=== PATIENT | female | born 1960 | race Caucasian/White ===

== ENCOUNTER → 2017-10-17 14:56 | Outpatient (CLI) | payer BC, SELFPAY ==
--- NOTE | 2017-10-17 15:00 | HPBI_ITS ---
MAMMOGRAPHY - BILATERAL SCREENING REASON FOR EXAM: Female, 57 years old. Routine annual screening examination. PERTINENT HISTORY: Non-contributory. TECHNIQUE: Digital bilateral breast philip (3D mammographic acquisition) in the CC and MLO projections. 2-D mediolateral oblique (MLO) and craniocaudad (CC) views of both breasts were obtained. CAD: Full Field Digital Mammography with Computer Added Detection was performed. COMPARISON: Comparison is made with prior study dated July 28, 2016 and July 14, 2015. FINDINGS: Breast Composition: The breasts are heterogeneously dense, which may obscure small masses. There are no dominant masses or suspicious calcifications. No other significant abnormalities are identified. There has been no significant change since the prior study. HPBI/SCREENING MAMM (CAD), BILAT IMPRESSION: Stable bilateral screening mammogram. Yearly follow-up mammogram recommended. (A) ASSESSMENT CATEGORY: BIRADS Category 1: Negative. A letter regarding these results will be sent to the patient by the facility within 30 days. Approximately 10% of breast cancers are not detected by mammography. A normal mammogram should not delay biopsy of a clinically suspicious abnormality. [id number] Electronically Signed: Jaylen Deleon MD at 8:33 EST Tel [phone], Service support ,
== END ==
PROVIDERS: Family Provider Family Medicine; PCP Family Medicine; Visit Provider Family Medicine
DX: Z12.31 Encounter for screening mammogram for malignant neoplasm of breast (principal)
CPT/HCPCS: 77063; 77067

== ENCOUNTER → 2017-11-29 15:23 | Outpatient (CLI) | payer BC, SELFPAY ==
--- NOTE | 2017-11-29 15:25 | HPBD_ITS ---
STUDY: DUAL ENERGY X-RAY ABSORPTIOMETRY / DXA REASON FOR EXAM: Female, 57 years old. Post menopausal female. Smoker. On [place] TECHNIQUE: Bone Mineral Density (BMD) measurements of lumbar spine were obtained. COMPARISON: None. FINDINGS: Lumbar Spine (L1-L4): g/cm2 (0.898) / T-score (-2.4) / Z-score (-1.3) Findings are suggestive of osteopenia with a moderate fracture risk. HPBD/Dexa Bone Density Study (HP) IMPRESSION: The patient is considered osteopenic as outlined below according to World Carlos Organization (WHO) criteria with a moderate fracture risk. Reference Information: The T-score is the number of standard deviations above or below the standard which is normal for young adults at their peak bone mineral density. The World Health Organization (WHO) interprets the T-scores as follows: Above -1 Normal bone density Between -1 and -2.5 Osteopenia Equal to / or below -2.5 Osteoporosis As a practical clinical guideline, osteopenia may be graded as follows: Mild -1 through -1.5 Moderate -1.6 through -2.0 Severe -2.1 through -2.4 The Z-score is the number of standard deviations above or below age-matched controls. A Z-score of less than -1.5 would be considered abnormal. References: 1. NIH Osteoporosis and Related Bone Diseases http://www.osteo.org 2. International Society for Clinical Densitometry http://www.iscd.org 3. National Osteoporosis Foundation http://www.nof.org Electronically Signed: Fernando Rae DO at 8:44 EDT Tel [phone], Service support ,
== END ==
PROVIDERS: Family Provider Family Medicine; PCP Family Medicine; Visit Provider Family Medicine
DX: M81.0 Age-related osteoporosis without current pathological fracture (principal)
CPT/HCPCS: 77080

== ENCOUNTER 2017-12-05 19:36 | Emergency (ER) | payer BC, SELFPAY ==
[2017-12-05 19:38] VITALS: BP 141/78; PULSE 94; RESP 16; TEMP 37.2; O2SAT 95; BMI 27.4
--- NOTE | 2017-12-05 20:54 | EKG12_ITS ---
Test Reason : Blood Pressure : / mmHG Vent. Rate : 080 BPM Atrial Rate : 080 BPM P-R Int : 162 ms QRS Dur : 080 ms QT Int : 386 ms P-R-T Axes : 051 049 036 degrees QTc Int : 445 ms Normal sinus rhythm Normal ECG Confirmed by FARZANEH CORRALES MD ([id number]), city editor NETO KIRKPATRICK ([id number]) on 12/09/2017 12:58:57 PM Referred By: Confirmed By:FARZANEH CORRALES MD
--- NOTE | 2017-12-05 21:00 | US_ITS ---
STUDY: VENOUS DOPPLER ULTRASOUND - RIGHT LOWER EXTREMITY REASON FOR EXAM: Female, 57 years old. Pain TECHNIQUE: Ultrasound evaluation of the deep vein system to include love-scale imaging and compression was performed. Love-scale imaging and Doppler sonographic evaluation, including duplex spectral analysis and qualitative color flow sonography, was performed. COMPARISON: None. FINDINGS: Common Femoral Vein: Normal compression, spontaneity and augmentation. Normal color Doppler. Common Femoral Vein/Greater Saphenous Junction: Normal compression, spontaneity and augmentation. Normal color Doppler. Deep Femoral Vein: Normal compression, spontaneity and augmentation. Normal color Doppler. Femoral Proximal: Normal compression, spontaneity and augmentation. Normal color Doppler. Femoral Middle: Normal compression, spontaneity and augmentation. Normal color Doppler. Femoral Distal: Normal compression, spontaneity and augmentation. Normal color Doppler. Popliteal Vein: Normal compression, spontaneity and augmentation. Normal color Doppler. Posterior Tibial Vein: Normal compression, spontaneity and augmentation. Normal color Doppler. Peroneal Vein: Normal compression, spontaneity and augmentation. Normal color Doppler. There is no demonstrated deep venous thrombosis. US/Venous Duplex Imag/Limited/Uni IMPRESSION: Normal venous Doppler ultrasound of the lower extremity. Electronically Signed: Amandeep Mcneill MD at 23:11 EDT , Service support ,
[2017-12-05] MEDS: 0.9% Normal Saline 1,000 ML 72.57 ML IV (21:14)
[2017-12-05 21:29] LABS: Absolute Lymphocyte Count 3.91 X10^3/ul (0.83-4.51); Absolute Neutrophil Count 3.8 X10^3/uL (2.0-7.7); Basophil# 0.03 X10^3/uL; Basophil% 0.4 % (0-1); Eosinophil# 0.13 X10^3/uL; Eosinophils% 1.6 % (0-5); Hematocrit 41.3 % (37-47); Hemoglobin 13.5 g/dl (12.0-15.0); Lymphocyte # 3.91 X10^3/ul (4.0); Lymphocyte % 47.1 % (19-41); Mean Corp Hgb Conc 32.7 g/gl (32-36); Mean Corpuscular Hgb 30.1 pg (27.0-32.0); Mean Platelet Vol. 10.1 fl (6.2-12.0); Monocyte# 0.48 X10^3/uL; Monocyte% 5.8 % (0-10); Neutrophil # 3.75 X10^3/uL (2.7-7.7); POSITIVE COUNT NO; POSITIVE DIFFERENTIAL NO; POSITIVE MORPHOLOGY NO; Platelet Count 423 K/mm3 (150-450); RBC Distribution Width CV 14.8 % (11.6-14.6); RBC Distribution Width SD 49.4 fl (35.1-43.9); Red Blood Count 4.49 M/mm3 (4.2-5.4); White Blood Count 8.3 K/mm3 (4.4-11.0)
[2017-12-05 21:45] LABS: Anion Gap 9 (5-15); BUN 12 mg/dL (7-18); BUN/Creat Ratio 15.8 RATIO (10-20); Calcium,Total 8.7 mg/dL (8.5-10.1); Chloride 115 mmol/L (98-107); Creatinine, Serum 0.76 mg/dL (0.55-1.02); EST Glomerular Filtration Rate 83 mL/min (>60); Est Glom Filt Rate - Afr Amer 101 mL/min (>60); Estimated Creatinine Clearance 70.52 ml/min; Glucose 130 mg/dL (74-106); Potassium 3.8 mmol/L (3.5-5.1); Sodium Level 146 mmol/L (136-145)
--- NOTE | 2017-12-05 22:00 | CT_ITS ---
STUDY: CTA CHEST REASON FOR EXAM: Female, 57 years old. Chest pain. History of pulmonary embolism. RADIATION DOSAGE (If Supplied By Facility): CTDIvol = ( 6.88 ) mGy, DLP = ( 330.93 ) mGycm TECHNIQUE: The examination was performed with the intravenous administration of 100ml ml of Isovue 370 contrast material. Post-processing of the angiographic images was performed, with multiplanar reformation and 3D reconstruction. Individualized dose optimization techniques were used for this CT. COMPARISON: 05/06/2017. FINDINGS: Normal enhancement of the main pulmonary artery and right and left pulmonary arteries. Normal enhancement of the bilateral peripheral pulmonary arteries. There is no demonstrated pulmonary embolism. The previously noted pulmonary emboli in the right pulmonary artery and its peripheral branches have resolved. Normal thoracic aorta and visualized great vessels. There is no demonstrated aortic dissection. Normal heart and pericardium. Normal mediastinum. Normal hilar regions. Normal visualized trachea and bronchi. The lungs are well expanded. There are no pulmonary infiltrates. There are no pleural effusions. Normal chest wall structures. There are mild degenerative changes in the spine. Visualized portions of the upper abdomen are unchanged. CT/CTA Chest W/WO Contrast IMPRESSION: No evidence of pulmonary embolism. No infiltrate is seen. Electronically Signed: Anthony Penn MD at 23:01 EDT Tel , Service support ,
[2017-12-06] VITALS (11 sets, daily range): BP systolic 131–157; BP diastolic 70–97; PULSE 72–101; RESP 14–18; O2SAT 97–100
[2017-12-06 00:26] LABS: Acetaminophen (Tylenol) Level < 10.0 ug/mL (10.0-30.0)
[2017-12-06 00:40] LABS: Bacteria 0 SEEN /hpf (None Seen); Mucous, Urine 0 SEEN /hpf (<or=2+); Red Blood Cells-Urine 0 SEEN /hpf (0-5); White Blood Cells 0 SEEN /hpf (0-5)
[2017-12-06 00:49] LABS: Color, Urine Straw (Yellow); Glucose, Dipstick Normal (Normal); Ketone-Dipstick Negative (Negative); Leukocyte Esterase-Dipstick Negative /ul (Negative); Nitrite-Dipstick Negative (Negative); Occult Blood-Urine Negative /ul (Negative); Protein-Dipstick Negative (Negative); Urine Bilirubin Dipstick Negative (Negative); Urine Clarity Clear (Clear); Urine Urobilinogen Normal (Normal)
[2017-12-06 00:56] LABS: Squamous Epithelial Cells - UA 0-5 SEEN /hpf (5-10)
[2017-12-06 01:09] LABS: Amphetamine Urine VISTA NEGATIVE (<1000 ng/mL); Barbiturate Urine VISTA NEGATIVE (< 200 ng/mL); Benzodiazepine Urine VISTA NEGATIVE (< 200 ng/mL); Cocaine Urine VISTA NEGATIVE (< 300 ng/mL); Ecstacy Urine VISTA NEGATIVE (< 500 ng/mL); Methadone Urine VISTA NEGATIVE (< 300 ng/mL); PCP Urine VISTA NEGATIVE (< 25 ng/mL); THC Urine VISTA NEGATIVE (< 50 ng/mL); Vista UDS pH Range 5
--- NOTE | 2017-12-06 01:54 | ED.DCSUM_ITS ---
- ER Visit Summary Date of Service: 12/06/17 Chief Complaint: Right lower extremity pain and chest pain and suicidal threats History of Present Illness: The patient is a 57 F who presents intoxicated, saying that her right leg just feels like a blood clot is back and her chest which is bothersome on both lateral sides just feels like my pulmonary embolus is back. She states she has had some occasional lightheadedness but no near- syncope or syncope, no dyspnea, no fevers or cough. She had surgery on her right ankle because of a fracture, and developed DVT and subsequent pulmonary embolus, she has been placed on Eliquis 6 months ago, and she is anxious to get off of it, she states her doctor told her that she will be on it for 6 months and if she is free of clot then she may discontinue it. Because the medication cost $500 every month, she has been trying to stretch it out by taking 1 pill daily instead of taking the medicine twice daily, as prescribed. She has been doing that for almost a month. She has no other physical complaints. According to family, she is a closet alcoholic and drinks almost daily, as much she can, however in the last couple days she has not because her has been home for much of the couple days around the . However today she got drunk. She was acting very mean at home, making suicidal threats such as I just want to and also said I Told that Percocet from after my surgery so that I could use it at the right time to kill myself, and states that she told him that she thinks she took a bunch of the Percocet around 1800. Physical Examination: Vital signs are normal, pulse ox 95% room air, respirations 16. Heart rate 94. She is grossly intoxicated, which greatly limits her exam. For instance, she will not stop talking during pulmonary exam. Heart is regular without tachycardia. Neurologic exam is normal. She has asymmetric lower extremities. From the knee down, her right lower extremity is swollen and almost blue-purplish in color, although she has brisk cap refill and palpable pulses. Her left lower extremity looks normal, with skin color similar to the rest of her body. There is no purpura or petechiae. PERRLA, EOMI. No JVD or lymphadenopathy or neck is supple with full range of motion. At times she is very agitated and tearful, and accusatory. Test Results: Labs show increased sodium and chloride slightly, otherwise were all normal including troponin. Urinalysis is negative. Acetaminophen level is negative. Alcohol level was 291. Urine tox screen is negative. EKG is normal. Venous duplex ultrasound of the right lower extremity is negative for DVT. CT angiography of the chest is negative for PE or other acute abnormality. Of note, radiology mentions that previously noted pulmonary emboli are gone. Emergency Department Course and Treatment: She was allowed to rest. She is medically cleared for psychiatric evaluation. She will need to be observed overnight until sober, but at this time the patient is saying of course she is not suicidal; she keeps telling us that she wants to go home. We were able to redirect her without physical restraint or chemical restraints, and she actually is sleeping at this time. She is turned over to the night ED physician for final disposition in the morning, when she will likely need to be turned over again. Treatment Plan: Psychiatric evaluation Disposition: Pending Impression: Suicidal threats Right lower extremity pain-acute on chronic Noncardiac atypical chest pain Alcohol abuse This note was generated with [email or web address] dictation software. It may contain incorrect words, spelling, and punctuation that were not noted in review of the chart prior to signing ED Disposition - Plan for ED Patient: Chief Complaint: Depression Referrals: Kenyatta Dillard MD [Primary Care Provider] -
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
--- NOTE | 2017-12-06 06:24 | ED.RN ---
home medications and breakfast order placed at this time
--- NOTE | 2017-12-06 07:06 | NURSING ---
CALLED CRISIS. RASHMI RETURNED CALL. LORETTA HULL , GIVING REPORT
--- NOTE | 2017-12-06 08:43 | NURSING ---
KURTIS, CRISIS, CALLED BACK. HE HAS SOMETHING TO DO, THEN HE WILL BE IN
--- NOTE | 2017-12-06 10:19 | NURSING ---
KURTIS, TOÑO, CALLED. HE'S AT ANOTHER HOSPITAL, BUT ON HIS WAY HERE NOW.
[2017-12-06] MEDS: Levothyroxine 50 MCG Tablet PO (10:40)
[2017-12-06] MEDS: APIXABAN 5 MG TABLET PO (10:40)
[2017-12-06] MEDS: Metoprolol Tartrate 50 MG Tablet PO (10:40)
--- NOTE | 2017-12-06 11:27 | NURSING ---
KURTIS, CRISIS, HERE
--- NOTE | 2017-12-06 11:36 | ED.RN ---
pt takes pristiq daily. pharmacy does not have available. approved pt to take med from home. watched pt take 50mg pristiq po per home meds.
--- NOTE | 2017-12-06 13:08 | ED.DEP ---
ED Disposition - Plan for ED Patient: Disposition: Home or Assisted Living Chief Complaint: Depression Instructions: ED Depression, ED Alcohol Intoxication Referrals: Kenyatta Dillard MD [Primary Care Provider] - EIGHTY,ONE [STAFF PHYSICIAN] -
== END 2017-12-06 13:41 | disposition home or self-care (01) ==
PROVIDERS: Emergency Provider Emergency Medicine; Family Provider Family Medicine; PCP Family Medicine
DX: R45.851 Suicidal ideations (principal); F10.129 Alcohol abuse with intoxication, unspecified; Y90.8 Blood alcohol level of 240 mg/100 ml or more; G89.29 Other chronic pain; M79.661 Pain in right lower leg; R07.89 Other chest pain; Z86.718 Personal history of other venous thrombosis and embolism; Z86.711 Personal history of pulmonary embolism; Z79.01 Long term (current) use of anticoagulants
CPT/HCPCS: 71275; 80048; 80307; 80320; 80329; 81001; 84484; 85025; 93005; 93971; 99285; J7030; Q9967; A4216; G0480

== ENCOUNTER 2018-03-20 18:59 | Emergency (ER) | payer BC, SELFPAY ==
[2018-03-20 19:01] VITALS: BP 122/77; PULSE 88; RESP 16; TEMP 37.4; O2SAT 94; BMI 25.9
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
--- NOTE | 2018-03-20 20:40 | ED.DEP ---
ED Disposition - Plan for ED Patient: Disposition: Home or Assisted Living Chief Complaint: ETOH Intox Instructions: ED Alcohol Intoxication Referrals: Kenyatta Dillard MD [Primary Care Provider] -
[2018-03-20 20:46] VITALS: BP 127/71; PULSE 74; RESP 16; O2SAT 97
== END 2018-03-20 20:51 | disposition home or self-care (01) ==
LOC: ED 20:50
PROVIDERS: Emergency Provider Emergency Medicine; Family Provider Family Medicine; PCP Family Medicine
DX: F10.129 Alcohol abuse with intoxication, unspecified (principal); Y90.9 Presence of alcohol in blood, level not specified
CPT/HCPCS: 80320; 99282; G0480

== ENCOUNTER → 2018-03-30 10:00 | Outpatient (CLI) | payer BC, SELFPAY ==
--- NOTE | 2018-03-30 10:02 | RAD_ITS ---
STUDY: X-RAY - RIGHT WRIST REASON FOR EXAM: Fracture. TECHNIQUE: 3 view(s) of the wrist were obtained. COMPARISON: None. FINDINGS: There is a nondisplaced fracture of the distal radius. Normal radiocarpal articulation. Normal distal radioulnar articulation. Normal carpal bones. Normal carpal articulations. Normal carpometacarpal articulation of the thumb. Normal second through fifth carpometacarpal articulations. Normal visualized metacarpal bones. There is an overlying cast. RAD/Wrist min 3 Views IMPRESSION: Nondisplaced fracture of the distal radius. Electronically Signed: Chance Zamarripa MD at 11:30 EDT Tel , Service support ,
== END ==
PROVIDERS: Family Provider Family Medicine; PCP Family Medicine; Visit Provider Orthopaedic Surgery
DX: S52.501A Unspecified fracture of the lower end of right radius, initial encounter for closed fracture (principal)
CPT/HCPCS: 73110

== ENCOUNTER → 2018-04-06 08:04 | Outpatient (CLI) | payer BC, SELFPAY ==
--- NOTE | 2018-04-06 08:06 | RAD_ITS ---
STUDY: X-RAY - RIGHT WRIST REASON FOR EXAM: Female, 58 years old. Fracture follow-up TECHNIQUE: 3 view(s) of the wrist were obtained. COMPARISON: CR Wrist Right Mar 30 2018 10:06am FINDINGS: Fine osseous detail is obscured by the overlying cast. The ulna is poorly visualized. There is a healing distal radial metadiaphyseal fracture. Alignment is unchanged. Normal radiocarpal articulation. Normal distal radioulnar articulation. Normal carpal bones. Normal carpal articulations. Normal carpometacarpal articulation of the thumb. Normal second through fifth carpometacarpal articulations. Normal visualized metacarpal bones. The soft tissue structures are unremarkable. RAD/Wrist min 3 Views IMPRESSION: Healing distal radial fracture. Electronically Signed: Joesph Hunter MD at 17:09 EDT , Service support ,
== END ==
PROVIDERS: Family Provider Family Medicine; PCP Family Medicine; Visit Provider Physician Assistant
DX: S52.501A Unspecified fracture of the lower end of right radius, initial encounter for closed fracture (principal); X58.XXXA Exposure to other specified factors, initial encounter
CPT/HCPCS: 73110

== ENCOUNTER → 2018-04-14 08:06 | Outpatient (CLI) | payer BC, SELFPAY ==
--- NOTE | 2018-04-14 08:07 | RAD_ITS ---
STUDY: X-RAY - RIGHT WRIST REASON FOR EXAM: Female, 58 years old. Fracture TECHNIQUE: 3 view(s) of the wrist were obtained. COMPARISON: 04/06/2018 FINDINGS: Evaluation is limited by the overlying cast. There is no significant change in the previously seen distal radial fracture. There are no radiodense foreign bodies. RAD/Wrist min 3 Views IMPRESSION: Limited study. No significant change in the previously seen distal radial fracture. Electronically Signed: Will Samuels, at 20:27 EDT Tel , Service support ,
== END ==
PROVIDERS: Family Provider Family Medicine; PCP Family Medicine; Visit Provider Physician Assistant
DX: S52.551A Other extraarticular fracture of lower end of right radius, initial encounter for closed fracture (principal); X58.XXXA Exposure to other specified factors, initial encounter
CPT/HCPCS: 73110

== ENCOUNTER → 2018-05-12 08:09 | Outpatient (CLI) | payer BC, SELFPAY | PROVIDERS: Family Provider Family Medicine; PCP Family Medicine; Visit Provider Physician Assistant | DX: S52.501D Unspecified fracture of the lower end of right radius, subsequent encounter for closed fracture with routine healing (principal); X58.XXXD Exposure to other specified factors, subsequent encounter | CPT/HCPCS: 73110 ==

== ENCOUNTER → 2018-06-30 08:06 | Outpatient (CLI) | payer BC, SELFPAY ==
--- NOTE | 2018-06-30 08:08 | RAD_ITS ---
STUDY: X-RAY - RIGHT WRIST REASON FOR EXAM: Female, 58 years old. History of distal radial fracture. TECHNIQUE: 3 view(s) of the wrist were obtained. COMPARISON: Comparison is made with prior study dated May 12, 2018. FINDINGS: There is evidence of a healed fracture of the distal radial metaphysis. There is neutral facing. Normal radiocarpal articulation. Normal distal radioulnar articulation. Normal carpal bones. Normal carpal articulations. Normal carpometacarpal articulation of the thumb. Normal second through fifth carpometacarpal articulations. Normal visualized metacarpal bones. Soft tissue swelling. RAD/Wrist min 3 Views IMPRESSION: Healed distal radial fracture. Soft tissue swelling. Electronically Signed: Jaylen Deleon MD at 11:00 EDT Tel [phone], Service support ,
== END ==
PROVIDERS: Family Provider Family Medicine; PCP Family Medicine; Referring Provider Physician Assistant; Visit Provider Physician Assistant
DX: S52.551A Other extraarticular fracture of lower end of right radius, initial encounter for closed fracture (principal)
CPT/HCPCS: 73110

== ENCOUNTER → 2018-10-20 13:58 | Outpatient (CLI) | payer BC, SELFPAY ==
[2018-10-20 16:23] LABS: T4 Total, Thyroxin 8.1 ug/dL (4.8-13.9); Thyroid Stim Hormone (TSH) 2.98 uIU/mL (0.358-3.74)
== END ==
PROVIDERS: Family Provider Family Medicine; PCP Family Medicine; Visit Provider Family Medicine
DX: E03.9 Hypothyroidism, unspecified (principal)
CPT/HCPCS: 36415; 84436; 84443

== ENCOUNTER 2018-11-17 16:51 | Emergency (ER) | payer BC, SELFPAY ==
[2018-11-17] VITALS (7 sets, daily range): BP systolic 108–152; BP diastolic 72–93; PULSE 70–96; RESP 16–19; TEMP 36.9; O2SAT 88–98; BMI 27.8
--- NOTE | 2018-11-17 17:11 | EKG12_ITS ---
Test Reason : CP Blood Pressure : / mmHG Vent. Rate : 094 BPM Atrial Rate : 094 BPM P-R Int : 150 ms QRS Dur : 078 ms QT Int : 350 ms P-R-T Axes : 069 067 048 degrees QTc Int : 437 ms Normal sinus rhythm Normal ECG Confirmed by CAMERON SULLIVAN ([id number]), photograph editor HARDIK SARGENT ([id number]) on 11/20/2018 4:37:48 PM Referred By: DEEPAK Confirmed By:CAMERON SULLIVAN
--- NOTE | 2018-11-17 17:15 | ED.VISSUMM ---
- ER Visit Summary Date of Service: 11/17/18 Chief Complaint: Chest pain History of Present Illness: The patient is a 58 F who presents with chest pain for the past 3-4 months. Patient states her pain is over the left upper chest. Patient states she has a history of PE. Patient admits to a cough. Patient admits to some shortness of breath. Patient also admits to some diaphoresis. Patient also states she has been having some lightheadedness and palpitations. Patient denies any fevers or chills. Patient denies any nausea or vomiting. Patient states nothing makes the pain better or worse. Physical Examination: Vital signs are stable. Patient is afebrile. Patient is in no acute distress. Oral mucosa is pink and moist. Neck is supple. Trachea is midline. There is no JVD noted. Heart was regular rate and rhythm. Lungs are clear and equal bilateral. Abdomen is soft. Bowel sounds are normal. There is no tenderness. There is no guarding noted. Skin is warm dry. Cranial nerves II through XII are intact. There are no focal motor or sensory deficits noted. The remaining physical exam is within normal limits. Test Results: EKG showed normal sinus rhythm with a rate of 94. There are no acute ST or T wave changes. Chest x-ray does not show any acute cardiopulmonary process. CBC, basic metabolic profile, troponin, and d-dimer were obtained and were all normal. Emergency Department Course and Treatment: Patient was given aspirin here. Patient felt better on reevaluation. Patient has a HEART score of 2. Patient was advised that this is low risk for acute cardiac event. Patient was instructed to follow-up with her primary care physician in 3-5 days. Patient understood and was agreeable with the plan. All questions were answered. Disposition: Discharge home Impression: Chest pain This note was generated with [employer] dictation software. It may contain incorrect words, spelling, and punctuation that were not noted in review of the chart prior to signing ED Disposition - Plan for ED Patient: Disposition: Home or Assisted Living Diagnosis: Chest pain Instructions: ED Chest Pain Atypical Unkn Cause Referrals: Kenyatta Dillard MD [Primary Care Provider] - 3-5 Days
--- NOTE | 2018-11-17 17:20 | RAD_ITS ---
STUDY: X-RAY CHEST REASON FOR EXAM: Female, 58 years old. Chest pain. TECHNIQUE: Single AP portable view of the chest. COMPARISON: CTA of the chest, November 17, 2018. FINDINGS: The lungs are clear and expanded. There is no demonstrated pleural abnormality. Normal size heart. Normal mediastinum and trever. Normal visualized pulmonary arteries. Normal visualized aortic arch and descending thoracic aorta. Normal visualized thoracic spine. There is degenerative osteoarthritis of the bilateral shoulders. There is no demonstrated abnormality of the visualized soft tissue structures of the upper abdomen. RAD/Chest 1 View (Portable) IMPRESSION: No acute cardiopulmonary disease. Electronically Signed: Fernando Rae DO at 17:37 EDT Tel [phone], Service support ,
[2018-11-17] MEDS: Aspirin 81 MG TAB.CHEW 324 MG PO (17:24)
[2018-11-17 17:33] LABS: Absolute Lymphocyte Count 3.82 X10^3/ul (0.83-4.51); Absolute Neutrophil Count 4.6 X10^3/uL (2.0-7.7); Basophil# 0.04 X10^3/uL; Basophil% 0.4 % (0-1); Eosinophils% 1.1 % (0-5); Hematocrit 42.1 % (37-47); Hemoglobin 13.6 g/dl (12.0-15.0); Lymphocyte # 3.82 X10^3/ul (4.0); Lymphocyte % 41.2 % (19-41); Mean Corp Hgb Conc 32.3 g/gl (32-36); Mean Corpuscular Hgb 30.2 pg (27.0-32.0); Mean Corpuscular Volume 93.6 fL (81-99); Mean Platelet Vol. 9.8 fl (6.2-12.0); Monocyte% 7.5 % (0-10); Neutrophil % 49.6 % (47-70); POSITIVE COUNT NO; POSITIVE DIFFERENTIAL NO; POSITIVE MORPHOLOGY NO; Platelet Count 381 K/mm3 (150-450); RBC Distribution Width CV 14.1 % (11.6-14.6); RBC Distribution Width SD 48.3 fl (35.1-43.9); White Blood Count 9.3 K/mm3 (4.4-11.0)
[2018-11-17 17:43] LABS: Anion Gap 7 (5-15); BUN 16 mg/dL (7-18); Chloride 112 mmol/L (98-107); Creatinine, Serum 0.89 mg/dL (0.55-1.02); EST Glomerular Filtration Rate 69 mL/min (>60); Est Glom Filt Rate - Afr Amer 84 mL/min (>60); Glucose 114 mg/dL (74-106); Potassium 3.9 mmol/L (3.5-5.1); Sodium Level 140 mmol/L (136-145)
[2018-11-17 17:46] LABS: D-Dimer Quantitative (DVT/PE) < 0.27 FEU/ug/m (0.27-0.49)
== END 2018-11-17 20:11 | disposition home or self-care (01) ==
PROVIDERS: Emergency Provider Emergency Medicine; Family Provider Family Medicine; PCP Family Medicine
DX: R07.9 Chest pain, unspecified (principal); I10 Essential (primary) hypertension; E03.9 Hypothyroidism, unspecified; Z79.899 Other long term (current) drug therapy; Z72.0 Tobacco use
CPT/HCPCS: 71045; 80048; 84484; 85025; 85379; 93005; 99285; A4216

== ENCOUNTER → 2018-11-23 14:33 | Outpatient (CLI) | payer BC, SELFPAY ==
[2018-11-17 16:52] VITALS: BMI 27.8
--- NOTE | 2018-11-23 14:35 | BI_ITS ---
MAMMOGRAPHY - BILATERAL SCREENING 3-D MEENU SYNTHESIS REASON FOR EXAM: Female, 58 years old. Bilateral Screening 3-D tomosynthesis PERTINENT HISTORY: No significant family history. TECHNIQUE: 2-D mammograms and 3-D Meenu synthesis of the breast (s) were performed. CAD was performed. COMPARISON: October 17, 2017, July 28, 2016 FINDINGS: The breast composition is composed of scattered fibroglandular density. Scattered benign calcifications are stable. There are stable normal-appearing lymph nodes in both axillae. No dense spiculated masses or suspicious microcalcifications are identified. No architectural distortion is identified. There is no skin thickening or retraction. There has been no significant change since the prior study. BI/SCREENING MAMM (CAD), BILAT IMPRESSION: No mammographic signs of malignancy. Routine yearly mammograms recommended. ASSESSMENT CATEGORY: BIRADS Category 2: Benign. A letter regarding these results will be sent to the patient by the facility within 30 days. FOLLOW UP RECOMMENDATION: Yearly follow up mammogram recommended. (A) Approximately 10% of breast cancers are not detected by mammography. A normal mammogram should not delay biopsy of a clinically suspicious abnormality. Electronically Signed: Vinny Story MD at 17:00 EDT , Service support ,
== END ==
PROVIDERS: Family Provider Family Medicine; PCP Family Medicine; Referring Provider Family Medicine; Visit Provider Family Medicine
DX: Z12.31 Encounter for screening mammogram for malignant neoplasm of breast (principal)
CPT/HCPCS: 77063; 77067

== ENCOUNTER → 2019-04-09 09:45 | Outpatient (CLI) | payer BC, SELFPAY ==
[2018-11-17 16:52] VITALS: BMI 27.8
--- NOTE | 2019-04-09 09:49 | RAD_ITS ---
STUDY: X-RAY - RIGHT KNEE REASON FOR EXAM: Female, 59 years old. Pain TECHNIQUE: 4 view(s) of the knee. COMPARISON: None. FINDINGS: There is a small poorly defined bony density adjacent to the medial femoral epicondyle possibly representing cortical avulsion in association with MCL injury. Normal visualized proximal tibia and fibula. Normal proximal tibiofibular articulation. Narrowed medial femorotibial compartment. Normal lateral femorotibial compartment. Normal patellofemoral articulation. The soft tissue structures are unremarkable. RAD/Knee 4 or More Views IMPRESSION: Question subtle avulsion of the medial femoral condyle and MCL injury. MRI would be helpful for further evaluation if indicated Electronically Signed: Mick Hart MD at 21:59 EDT , Service support ,
== END ==
PROVIDERS: Family Provider Family Medicine; PCP Family Medicine; Referring Provider Family Medicine; Visit Provider Family Medicine
DX: M25.561 Pain in right knee (principal)
CPT/HCPCS: 73564

== ENCOUNTER → 2019-04-18 16:31 | Outpatient (CLI) | payer BC, SELFPAY ==
[2018-11-17 16:52] VITALS: BMI 27.8
--- NOTE | 2019-04-18 16:46 | MRI_ITS ---
STUDY: MRI LEFT KNEE REASON FOR EXAM: Female, 59 years old. Pain. Abnormal x-ray. TECHNIQUE: Standardized fat and water weighted pulse sequences were obtained in all 3 orthogonal planes. COMPARISON: December 08, 2018 x-ray FINDINGS: Normal medial meniscus. Normal hyaline cartilage of the medial femorotibial compartment. Normal medial femoral condyle and tibial plateau. There is a partial tear and sprain of the MCL with interstitial and periligamentous edema, series 6 images through . Normal distal semimembranosus, gracilis and semitendinosus tendons. Normal lateral meniscus. Normal hyaline cartilage of the lateral femorotibial compartment. There is reactive marrow edema of the lateral femoral condyle. Normal proximal tibiofibular articulation. Normal lateral collateral (fibular) ligament. Normal popliteus tendon. Normal biceps femoris tendon. Normal anterior cruciate ligament (ACL). Normal posterior cruciate ligament (PCL). There is arthrosis of the patellofemoral articulation. There is subchondral edema of the patella. There is diffuse, less than 50% thickness articular cartilage loss of the patellofemoral compartment. Normal medial and lateral patellar retinaculum. Normal quadriceps tendon. Normal patellar tendon. Normal Hoffa's fat pad. There is a small volume joint effusion. The soft tissues are unremarkable. The otherwise visualized osseous structures are unremarkable. MRI/Lower Ext Joint Only (Routine) IMPRESSION: Medial collateral ligament sprain and partial tear. Bone bruise or stress injury of the lateral femoral condyle. Patellofemoral degenerative change. Joint effusion. 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 Electronically Signed: Amandeep Mcneill MD at 18:19 EDT , Service support ,
== END ==
PROVIDERS: Family Provider Family Medicine; PCP Family Medicine; Referring Provider Family Medicine; Visit Provider Family Medicine
DX: T14.8XXA Other injury of unspecified body region, initial encounter (principal)
CPT/HCPCS: 73721

== ENCOUNTER → 2020-03-31 10:56 | Outpatient (CLI) | payer BC, SELFPAY ==
[2018-11-17 16:52] VITALS: BMI 27.8
--- NOTE | 2020-03-31 10:59 | BI_ITS ---
MAMMOGRAPHY - BILATERAL SCREENING REASON FOR EXAM: Female, 60 years old. Routine annual screening examination. PERTINENT HISTORY: Aunt with breast cancer. TECHNIQUE: Digital bilateral breast meenu (3D mammographic acquisition) in the CC and MLO projections. 2-D mediolateral oblique (MLO) and craniocaudad (CC) views of both breasts were obtained. CAD: Full Field Digital Mammography with Computer Added Detection was performed. COMPARISON: Comparison is made with prior study dated 11-23-18 and 10-17-17. FINDINGS: Breast Composition: The breasts are heterogeneously dense, which may obscure small masses. There are no dominant masses or suspicious calcifications. No other significant abnormalities are identified. There has been no significant change since the prior study. BI/SCREEN MAMM (CAD) W/MEENU BILAT IMPRESSION: Stable bilateral screening mammogram. Yearly follow-up mammogram recommended. (A) ASSESSMENT CATEGORY: BIRADS Category 1: Negative. A letter regarding these results will be sent to the patient by the facility within 30 days. Approximately 10% of breast cancers are not detected by mammography. A normal mammogram should not delay biopsy of a clinically suspicious abnormality. [id number] Electronically Signed: Jaylen Deleon, at 12:51 EDT , Service support ,
== END ==
PROVIDERS: PCP Family Medicine; Referring Provider Family Medicine; Visit Provider Family Medicine
DX: Z12.31 Encounter for screening mammogram for malignant neoplasm of breast (principal)
CPT/HCPCS: 77063; 77067

== ENCOUNTER → 2021-06-03 12:49 | Outpatient (CLI) | payer OTHER, SELFPAY ==
--- NOTE | 2021-06-03 12:51 | BI_ITS ---
MAMMOGRAPHY - BILATERAL SCREENING REASON FOR EXAM: Female, 61 years old. Routine annual screening examination. PERTINENT HISTORY: Non-contributory. TECHNIQUE: Digital bilateral breast meenu (3D mammographic acquisition) in the CC and MLO projections. 2-D mediolateral oblique (MLO) and craniocaudad (CC) views of both breasts were obtained. CAD: Full Field Digital Mammography with Computer Added Detection was performed. COMPARISON: Comparison is made with prior study dated 03/31/2020 and 11/23/2018. FINDINGS: Breast Composition: The breasts are heterogeneously dense, which may obscure small masses. There are no dominant masses or suspicious calcifications. No other significant abnormalities are identified. There has been no significant change since the prior study. BI/SCRN MAMM (CAD)W/MEENU BILAT IMPRESSION: Stable bilateral screening mammogram. Yearly follow-up mammogram recommended. (A) ASSESSMENT CATEGORY: BIRADS Category 1: Negative. A letter regarding these results will be sent to the patient by the facility within 30 days. Approximately 10% of breast cancers are not detected by mammography. A normal mammogram should not delay biopsy of a clinically suspicious abnormality. [id number] Electronically Signed: Jaylen Deleon MD at 14:16 EDT , Service support ,
== END ==
PROVIDERS: PCP Family Medicine; Referring Provider Family Medicine; Visit Provider Family Medicine
DX: Z12.31 Encounter for screening mammogram for malignant neoplasm of breast (principal)
CPT/HCPCS: 77063; 77067